=== PATIENT | female | born 1975 | race Caucasian/White ===

== ENCOUNTER → 2018-05-04 | Outpatient (REF) | LOC: M SMT 14:38 | DX: Z00.00 Encounter for general adult medical examination without abnormal findings (principal) ==

== ENCOUNTER → 2019-06-22 | Outpatient (REF) | payer OTHER ==
[~2019-06-22] MED LIST: ABIL5TAB PO; BUPR8SUB SL; IBUP80TA PO; NEUR300C PO; NEUR600T PO; TRAZ100T2 PO; WELLTAB PO
[2019-06-22 18:52] LABS: APPEARANCE, URINE HAZY (CLEAR); BACTERIA, URINE AUTO 2+ (NEGATIVE); BILIRUBIN, URINE AUTO NEGATIVE (NEGATIVE); BLOOD, URINE BLOOD NEGATIVE (NEGATIVE); COLOR, URINE STRAW (YELLOW); GLUCOSE, URINE (UA) AUTO NEGATIVE (NEGATIVE); KETONE, URINE AUTO NEGATIVE (NEGATIVE); LEUKOCYTE ESTERASE, URINE AUTO NEGATIVE (NEGATIVE); MUCUS, URINE SMALL (NEGATIVE); NITRITE, URINE AUTO NEGATIVE (NEGATIVE); PROTEIN, URINE AUTO NEGATIVE (NEGATIVE); RBC, URINE AUTO 1 /HPF (0-3); SPECIFIC GRAVITY URINE AUTO 1.004 (1.002-1.035); SQUAMOUS EPITHELIAL CELL UR AU 2 /HPF (0-6); UROBILINOGEN, URINE AUTO 0.2 mg/dL (0.0-2.0); WBC, URINE AUTO 5 /HPF (0-3)
== END ==
LOC: M SMT 17:04
PROVIDERS: ATTEND Nurse Practitioner Women's Health
DX: R31.0 Gross hematuria (principal)

== ENCOUNTER → 2022-02-04 | Outpatient (CLI) | payer BC, OTHER | LOC: M WHC 14:22 | PROVIDERS: ATTEND Nurse Practitioner | DX: Z12.31 Encounter for screening mammogram for malignant neoplasm of breast (principal); Z53.9 Procedure and treatment not carried out, unspecified reason ==

== ENCOUNTER → 2022-02-10 | Outpatient (CLI) | payer BC, OTHER | LOC: M WHC 10:21 | PROVIDERS: ATTEND Nurse Practitioner | DX: N64.59 Other signs and symptoms in breast (principal); R92.8 Other abnormal and inconclusive findings on diagnostic imaging of breast; Z87.2 Personal history of diseases of the skin and subcutaneous tissue | CPT/HCPCS: 76642; 77066; G0279 ==

== ENCOUNTER 2022-05-07 12:03 | Emergency (ER) | payer BC, OTHER ==
[~2022-05-07] VITALS: Ht 170.2 cm; Wt 73.6 kg
[2022-05-07 12:05] VITALS: BP 123/70
[2022-05-07] MEDS ORDERED: PREG200C (12:39)
== END 2022-05-07 18:09 | disposition left against medical advice (07) ==
LOC: M ED 12:03
DX: Z53.21 Procedure and treatment not carried out due to patient leaving prior to being seen by health care provider (principal)

== ENCOUNTER → 2022-05-27 | Outpatient (CLI) | payer BC, OTHER ==
[~2022-05-27] MED LIST changes: +PREG200C
== END ==
LOC: M RAD 11:25
PROVIDERS: ATTEND Anesthesiology Addiction Medicine
DX: J44.9 Chronic obstructive pulmonary disease, unspecified (principal)

== ENCOUNTER → 2022-08-05 | Outpatient (CLI) | payer BC, OTHER ==
[~2022-08-05] MED LIST changes: +PREG100CA PO
== END ==
LOC: M WHC 10:46
PROVIDERS: ATTEND Surgery
DX: N63.22 Unspecified lump in the left breast, upper inner quadrant (principal); N63.23 Unspecified lump in the left breast, lower outer quadrant

== ENCOUNTER → 2022-09-21 | Outpatient (CLI) | payer BC, OTHER ==
[~2022-09-21] MED LIST changes: +BUPR8SUB; +FERR325T3 PO; -PREG200C; +PREG200C PO; +PROHANCE 279.3MG/ML 15ML VIAL ONE
== END ==
LOC: M PLAIMG 09:46
PROVIDERS: ATTEND Surgery
DX: N64.59 Other signs and symptoms in breast (principal)
CPT/HCPCS: A9576; C8908

== ENCOUNTER 2022-09-29 08:23 | Day surgery (SDC) | payer BC, OTHER ==
[~2022-09-29] VITALS: Ht 170.2 cm; Wt 77.6 kg
[~2022-09-29 08:23] MED LIST changes: -PROHANCE 279.3MG/ML 15ML VIAL ONE; +ceFAZolin SOD 2 GM in IV 1 EA IV ONE
[2022-09-29] MEDS ORDERED: LR 1,000 ML IV SCH ×2 (09:05→12:20)
[2022-09-29] MEDS ORDERED: propofoL 200 MG/20 ML VIAL As Ordered ONE (09:10)
[2022-09-29] MEDS ORDERED: ONDANSETRON 4MG 2ML VIAL As Ordered ONE (09:10)
[2022-09-29] MEDS ORDERED: fentaNYL 100 MCG/2 ML INJECTION As Ordered ONE (09:10)
[2022-09-29] MEDS ORDERED: LIDOCAINE 2% 100MG/5ML SDV (FOR ANES.) As Ordered ONE (09:10)
[2022-09-29] MEDS ORDERED: MIDAZOLAM INJ 2MG/2ML VIAL As Ordered ONE (09:10)
[2022-09-29] MEDS ORDERED: HEPARIN SOD (PORCINE) 5000UNITS/ML 1ML VIAL/SYRINGE SQ ONE (09:30)
[2022-09-29] MEDS ORDERED: ceFAZolin SOD 2 GM in IV 1 EA IV ONE (09:30)
[2022-09-29] MEDS ORDERED: LIDOCAINE 1% SDV 30ML VIAL As Ordered ONE (09:48)
[2022-09-29] MEDS ORDERED: BUPIVACAINE HCL 0.25% 30ML VIAL As Ordered ONE (09:48)
[2022-09-29] MEDS ORDERED: BUPIVACAINE LIPOSOME/PF 1.3% 20ML VIAL (13.3MG/ML)(EXPAREL) As Ordered ONE (09:55)
[2022-09-29] MEDS ORDERED: ACETAMINOPHEN 1000MG 100ML IV BAG As Ordered ONE (10:43)
[2022-09-29] MEDS ORDERED: HYDROMORPHONE HCL 0.5 MG/ 0.5 ML SYRINGE IV PRN (12:20)
[2022-09-29] MEDS ORDERED: fentaNYL 100 MCG/2 ML INJECTION IV PRN (12:20)
[2022-09-29] MEDS ORDERED: oxyCODONE 5MG TAB PO PRN (12:20)
[2022-09-29] MEDS ORDERED: ONDANSETRON 4MG 2ML VIAL IV PRN (12:20)
[2022-09-29 14:00] VITALS: BP 139/86
== END 2022-09-29 14:06 | disposition home or self-care (01) ==
LOC: M SDC 08:23
PROVIDERS: ATTEND Surgery
DX: D24.2 Benign neoplasm of left breast (principal); D64.9 Anemia, unspecified; Z79.899 Other long term (current) drug therapy; Z88.8 Allergy status to other drugs, medicaments and biological substances; Z86.59 Personal history of other mental and behavioral disorders; J44.9 Chronic obstructive pulmonary disease, unspecified; F41.9 Anxiety disorder, unspecified; F32.A Depression, unspecified
CPT/HCPCS: 19125; 36415; 76942; 86850; 86900; 86901; 88307; A4648; C9290; J0131; J0690; J1100; J2250; J2405; J3010; S0020

== ENCOUNTER → 2023-07-13 | Outpatient (CLI) | payer BC, OTHER ==
[~2023-07-13] MED LIST changes: -PREG200C PO; +PREG200C2 PO; -ceFAZolin SOD 2 GM in IV 1 EA IV ONE
[2023-07-13 18:26] LABS: HEMATOCRIT 39.4 % (36.0-47.0); HEMOGLOBIN 12.7 g/dl (12.0-15.5); MEAN CORPUSCULAR HEMOGLOBIN 31.7 pg (27.0-33.0); MEAN CORPUSCULAR HGB CONC 32.2 g/dl (32.0-36.5); MEAN CORPUSCULAR VOLUME 98.3 fl (80.0-96.0); PLATELET COUNT, AUTOMATED 187 10^3/uL (150-450); RED BLOOD COUNT 4.01 10^6/uL (4.00-5.40); WHITE BLOOD COUNT 4.7 10^3/uL (4.0-10.0)
[2023-07-13 18:51] LABS: ALBUMIN 3.4 G/DL (3.2-5.2); ALKALINE PHOSPHATASE 73 U/L (46-116); ALT/SGPT 14 U/L (7.0-40); AST/SGOT 18 U/L (<34); BILIRUBIN,TOTAL 0.4 MG/DL (0.3-1.2); BLOOD UREA NITROGEN 15 MG/DL (9-23); CALCIUM LEVEL 8.6 MG/DL (8.5-10.1); CARBON DIOXIDE LEVEL 34 MMOL/L (20-31); CHLORIDE LEVEL 109 MMOL/L (98-107); CHOLESTEROL LEVEL 150 MG/DL (<200); CHOLESTEROL RISK RATIO 2.43 (<5); CREATININE FOR GFR 0.65 MG/DL (0.55-1.30); GLOMERULAR FILTRATION RATE > 60.0 (>58); GLUCOSE, FASTING 71 MG/DL (60-100); HDL CHOLESTEROL 61.6 MG/DL (>40); LDL CHOLESTEROL 79.4 MG/DL (<100); NON-HDL-C 88.4 MG/DL; POTASSIUM SERUM 4.3 MMOL/L (3.5-5.1); SODIUM LEVEL 144 MMOL/L (136-145); TOTAL PROTEIN 5.7 G/DL (5.7-8.2); TRIGLYCERIDES LEVEL 45 MG/DL (<150)
[2023-07-13 18:52] LABS: THYROID STIMULATING HORMONE 2.834 uIU/ML (0.55-4.78)
[2023-07-13 18:53] LABS: TOTAL 25(OH) VITAMIN D 61.6 NG/ML (20.0-100.0)
== END ==
LOC: M WUC 13:47
PROVIDERS: ATTEND Nurse Practitioner
DX: Z79.899 Other long term (current) drug therapy (principal)

== ENCOUNTER 2024-03-07 21:22 | Emergency (ER) | payer BC, OTHER ==
[2024-03-07 21:32] VITALS: TEMP 99.6
[2024-03-07] MEDS: NS 1,000 ML IV ONE (22:05)
[2024-03-07 22:20] LABS: VENOUS BASE EXCESS 1.3 (-2.0-2.0); VENOUS HCO3 25.7 MMOL/L (23.0-27.0); VENOUS O2 SATURATION 97.7 % (60.0-80.0); VENOUS PARTIAL PRESSURE CO2 39.9 mmHg (38.0-50.0); VENOUS PARTIAL PRESSURE O2 97.6 mmHg (30.0-50.0); VENOUS PH 7.427 UNITS (7.330-7.430); VENOUS STANDARD HCO3 25.7 MMOL/L; VENOUS TOTAL CO2 26.9 MMOL/L (24.0-28.0)
[2024-03-07 22:34] LABS: BASO % 0.3 % (0.0-1.0); EOS % 0.3 % (0.0-3.0); HEMATOCRIT 36.7 % (36.0-47.0); HEMOGLOBIN 12.6 g/dl (12.0-15.5); LYMPH # 1.6 10^3/uL (1.5-5.0); LYMPH % 17.9 % (24.0-44.0); MEAN CORPUSCULAR HEMOGLOBIN 32.1 pg (27.0-33.0); MEAN CORPUSCULAR HGB CONC 34.3 g/dl (32.0-36.5); MEAN CORPUSCULAR VOLUME 93.6 fl (80.0-96.0); MONO # 0.7 10^3/uL (0.0-0.8); MONO % 8.3 % (2.0-8.0); NEUTROPHILS # 6.5 10^3/uL (1.5-8.5); NEUTROPHILS % 73.1 % (36.0-66.0); PLATELET COUNT, AUTOMATED 158 10^3/uL (150-450); RED BLOOD COUNT 3.92 10^6/uL (4.00-5.40); WHITE BLOOD COUNT 8.8 10^3/uL (4.0-10.0)
[2024-03-07 22:58] LABS: ETHYL ALCOHOL (ETHANOL) < 0.003 % (0.000-0.010)
[2024-03-07 23:00] LABS: CPK CREATINE PHOSPHOKINASE 86 U/L (34-145)
[2024-03-07 23:07] LABS: BLOOD UREA NITROGEN 9 MG/DL (9-23); CALCIUM LEVEL 7.9 MG/DL (8.5-10.1); CARBON DIOXIDE LEVEL 30 MMOL/L (20-31); CHLORIDE LEVEL 106 MMOL/L (98-107); CK-MB VALUE MASS < 1.0 NG/ML (<3.6); CREATININE FOR GFR 0.79 MG/DL (0.55-1.30); GLOMERULAR FILTRATION RATE > 60.0 (>58); GLUCOSE, FASTING 97 MG/DL (60-100); MB/CK RELATIVE INDEX 1.16 (< OR =4); POTASSIUM SERUM 2.8 MMOL/L (3.5-5.1); SODIUM LEVEL 138 MMOL/L (136-145); THYROID STIMULATING HORMONE 1.523 uIU/ML (0.55-4.78)
[2024-03-07 23:53] LABS: MAGNESIUM LEVEL 1.5 MG/DL (1.8-2.4)
[2024-03-08] MEDS: POTASSIUM CHLORIDE 10MEQ SR TABLET PO ONE (00:07)
[2024-03-08] MEDS: KCL 10MEQ/100ML SWI (KRUN) 10 MEQ in IV 1 EA IV ONE (00:08)
[2024-03-08 01:05] LABS: CK-MB VALUE MASS < 1.0 NG/ML (<3.6); CPK CREATINE PHOSPHOKINASE 94 U/L (34-145); MB/CK RELATIVE INDEX 1.06 (< OR =4)
[2024-03-08 02:07] LABS: AMPHETAMINES LEVEL URINE NEGATIVE (NEGATIVE)
[2024-03-08] MEDS: MAG SULF 1GM/100ML (MAG RUN) 1 GM in IV 1 EA IV ONE (02:35)
[2024-03-08 02:48] LABS: CK-MB VALUE MASS < 1.0 NG/ML (<3.6)
[2024-03-08 02:50] LABS: CPK CREATINE PHOSPHOKINASE 92 U/L (34-145); MB/CK RELATIVE INDEX 1.08 (< OR =4)
[2024-03-08 03:30] VITALS: BP 97/61
[2024-03-08 03:42] LABS: BARBITURATES URINE NEGATIVE (NEGATIVE); BENZODIAZEPINES URINE NEGATIVE (NEGATIVE); CANNABINOIDS URINE NEGATIVE (NEGATIVE); COCAINE METABOLITE URINE NEGATIVE (NEGATIVE); METHADONE URINE NEGATIVE (NEGATIVE); OPIATES URINE NEGATIVE (NEGATIVE); PHENCYCLIDINE URINE NEGATIVE (NEGATIVE)
[2024-03-08 03:45] VITALS: O2SAT 97
== END 2024-03-08 04:06 | disposition left against medical advice (07) ==
LOC: M ED 21:22 → EDBD 21:22 → M ED 03-08 04:06
DX: E87.6 Hypokalemia (principal); I95.9 Hypotension, unspecified; F31.9 Bipolar disorder, unspecified; F17.200 Nicotine dependence, unspecified, uncomplicated; M79.7 Fibromyalgia; Z79.899 Other long term (current) drug therapy; Z53.9 Procedure and treatment not carried out, unspecified reason
CPT/HCPCS: 71045; 80048; 80307; 82077; 82550; 82553; 82803; 83605; 83735; 84443; 84484; 85025; 93005; 93041; 94760; 96361; 96365; 96367; 99285; J3475

== ENCOUNTER → 2024-12-27 | Outpatient (CLI) | payer BC ==
[~2024-12-27] MED LIST changes: +PREG-35 PO; -PREG100CA PO
== END ==
LOC: M WHC 16:21
PROVIDERS: ATTEND Internal Medicine
DX: Z12.31 Encounter for screening mammogram for malignant neoplasm of breast (principal)